=== PATIENT | male | born 1965 | race Caucasian/White ===

== ENCOUNTER 2018-12-01 21:04 | Emergency (ER) | payer BC, OTHER ==
[2018-12-01 21:15] VITALS: BP 123/75
[2018-12-01] MEDS ORDERED: Tetracaine 0.5% OPTH.SOL 4 ML* 1 DROP BTL RIGHT EYE ONE (21:24)
[2018-12-01] MEDS ORDERED: Fluorescein Sodium TOPICAL* 1 MG TEST STRIP OPHTHALMIC ONE (21:24)
--- NOTE | 2018-12-01 21:36 | ED ---
Throat Pain/Nasal Congestion - HPI Summary HPI Summary: Mr. Franco was using a Dremel about 1800 and felt a piece of metal go into his right eye. It has continued to bother him since. His vision is unaffected aside from watering a lot. - History of Current Complaint Chief Complaint: UCEye Hx Obtained From: Patient Onset/Duration: Sudden Onset Severity: Moderate Associated Signs And Symptoms: Positive: FB Sensation - Allergies/Home Medications Allergies/Adverse Reactions: Allergies Allergy/AdvReac Type Severity Reaction Status Date / Time No Known Allergies Allergy Verified 12/01/18 21:15 Home Medications: Home Medications NK [No Home Medications Reported] 12/01/18 [History Confirmed 12/01/18] PMH/Surg Hx/FS Hx/Imm Hx - Surgical History Surgery Procedure, Year, and Place: RIGHT SHOULDER ARTHROSCOPIC, RIGHT CARPAL TUNNEL RELEASE Infectious Disease History: No Infectious Disease History: Denies: Traveled Outside the [place] in Last 30 Days - Social History Alcohol Use: Occasionally Substance Use Type: Reports: Marijuana Smoking Status (MU): Current Every Day Smoker Type: Cigarettes Amount Used/How Often: 1 1/2 PPD Review of Systems Constitutional: Negative Positive: Drainage - watering. Negative: Photophobia, Blurred Vision, Diplopia , Erythema Psychological: Normal All Other Systems Reviewed And Are Negative: No Physical Exam - Summary Physical Exam Summary: He is non-toxic in appearance and vitals are stable. Triage Information Reviewed: Yes Vital Signs On Initial Exam: Initial Vitals Temp Pulse Resp BP Pulse Ox 96.7 F 94 16 123/75 95 12/01/18 21:10 12/01/18 21:10 12/01/18 21:10 12/01/18 21:10 12/01/18 21:10 Vital Signs Reviewed: Yes Appearance: Positive: Pain Distress - Mild Skin: Positive: Warm Eyes: Positive: Other: - There is a small metallic F.B adherent to the cornea about 9:00. Diagnostics - Vital Signs Vital Signs Temp Pulse Resp BP Pulse Ox 12/01/18 21:10 96.7 F 94 16 123/75 95 - Laboratory Lab Statement: Any lab studies that have been ordered have been reviewed, and results considered in the medical decision making process. EENT Course/Dx - Course Course Of Treatment: Tetracaine and fluoriscein were instilled onto the eye and an 18 gauge needle was used to flick the F.B off. It fell into the inferior part of his conjuntivae and that area was thoroughly irrigated with sterile NS. I couldn't find the F.B subsequently so I gave him some NS and F/U with Dr. Edgar if needed. - Diagnoses Provider Diagnoses: Corneal FB (foreign body) Discharge - Sign-Out/Discharge Documenting (check all that apply): Patient Departure All imaging exams completed and their final reports reviewed: No Studies - Discharge Plan Condition: Stable Disposition: HOME Patient Education Materials: Eye Foreign Body (ED) Referrals: Merlene COLEMAN,Francis Rodriguez [Primary Care Provider] - Dontrell Edgar MD [Medical Doctor] - - Billing Disposition and Condition Condition: STABLE Disposition: Home
== END 2018-12-01 21:45 | disposition home or self-care (01) ==
LOC: UCEAST 21:04
DX: T15.01XA Foreign body in cornea, right eye, initial encounter (principal); F17.210 Nicotine dependence, cigarettes, uncomplicated
CPT/HCPCS: 65220; 99202; A9270-GY; G0463

== ENCOUNTER 2018-12-02 18:20 | Emergency (ER) | payer BC ==
[2018-12-02] MEDS ORDERED: Tetracaine 0.5% OPTH.SOL 4 ML* 1 DROP BTL RIGHT EYE ONE (20:01)
[2018-12-02] MEDS ORDERED: Fluorescein Sodium TOPICAL* 1 MG TEST STRIP OPHTHALMIC ONE (20:01)
[2018-12-02] MEDS ORDERED: Tobramycin 0.3% OPHTH.SOL* 5 ML BOT (regular eye drops) RIGHT EYE ONE (20:33)
[2018-12-02] MEDS ORDERED: Eye Irrigation Solution 30 ML BOTTLE RIGHT EYE ONE (20:33)
--- NOTE | 2018-12-02 20:39 | UC ---
Eye Complaint HPI - HPI Summary HPI Summary: 53-year-old male comes to clinic today with a chief complaint of right eye pain and feeling of foreign body. Yesterday he was working and got up piece of metal in his right eye. It was a low velocity foreign body. He was seen here in urgent care and a foreign body was seen and the foreign body was dislodged from the surface of the eye however the foreign body was not found afterwards and this possibility the foreign body stayed in the eye. Last night the patient had tetracaine in the eye and had no pain however when he woke up this morning he had irritation primarily in the lateral upper quadrant. We has become more irritated his to days,. No complaint of vision change. - History of Current Complaint Chief Complaint: UCEye Stated Complaint: FOREIGN BODY IN EYE Time Seen by Provider: 12/02/18 19:48 Pain Intensity: 0 - Allergies/Home Medications Allergies/Adverse Reactions: Allergies Allergy/AdvReac Type Severity Reaction Status Date / Time No Known Allergies Allergy Verified 12/02/18 18:36 PMH/Surg Hx/FS Hx/Imm Hx Previously Healthy: Yes - Surgical History Surgical History: Yes Surgery Procedure, Year, and Place: RIGHT SHOULDER ARTHROSCOPIC, RIGHT CARPAL TUNNEL RELEASE - Family History Known Family History: Positive: Non-Contributory - Social History Alcohol Use: Occasionally Substance Use Type: Marijuana Smoking Status (MU): Current Every Day Smoker Type: Cigarettes Amount Used/How Often: 1 1/2 PPD Review of Systems All Other Systems Reviewed And Are Negative: Yes Constitutional: Positive: Negative Skin: Positive: Negative Eyes: Positive: Eye Redness, Other - SEE HPI ENT: Positive: Negative Respiratory: Positive: Negative Cardiovascular: Positive: Negative Gastrointestinal: Positive: Negative Motor: Positive: Negative Neurovascular: Positive: Negative Musculoskeletal: Positive: Negative Neurological: Positive: Negative Psychological: Positive: Negative Is Patient Immunocompromised?: No Physical Exam Triage Information Reviewed: Yes Appearance: Well-Appearing, No Pain Distress, Well-Nourished Vital Signs: Initial Vital Signs Temp 97.2 F 12/02/18 18:33 Pulse 87 12/02/18 18:33 Resp 20 12/02/18 18:33 BP 142/73 12/02/18 18:33 Pulse Ox 97 12/02/18 18:33 Vital Signs Reviewed: Yes Eyes: Positive: Conjunctiva Inflamed, Discharge - CLEAR DRAINAGE RT EYE, Other: - On examination of the eye with fluorescein stain on examination of the right I , there does appear to be fluorescein uptake in the right upper eyelid which I swept with a Q-tip. That same area was gone afterwards. Then the patient reported feeling a foreign body one the medial aspect of the eye. PERRLA EOMI globe intact. Iris and pupil are symmetric. ENT: Negative: Nasal congestion, Nasal drainage Neck exam: Normal Neck: Positive: Supple Respiratory: Positive: No respiratory distress Musculoskeletal Exam: Normal Musculoskeletal: Positive: Strength Intact, ROM Intact Neurological Exam: Normal Neurological: Positive: Alert, Muscle Tone Normal Psychological Exam: Normal Psychological: Positive: Age Appropriate Behavior Skin Exam: Normal Eye Complaint Course/Dx - Course Course Of Treatment: On this examination it appears I was able to remove the free-floating foreign body from underneath the right eyelid. However I did let the patient know I would like him to follow up with ophthalmology tomorrow for more complete examination. - Differential Dx/Diagnosis Provider Diagnosis: Foreign body of right eye Discharge - Sign-Out/Discharge Documenting (check all that apply): Patient Departure All imaging exams completed and their final reports reviewed: No Studies - Discharge Plan Condition: Stable Disposition: HOME Patient Education Materials: Eye Foreign Body (ED) Referrals: Merlene COLEMAN,Francis Rodriguez [Primary Care Provider] - Jh Chapman MD [Medical Doctor] - Dontrell Edgar MD [Medical Doctor] - Additional Instructions: FOLLOW UP WITH OPHTHALMOLOGY. GET RECHECKED FOR ANY WORSENING OF YOUR CONDITION OR QUESTIONS OR CONCERNS. - Billing Disposition and Condition Condition: STABLE Disposition: Home
[2018-12-02 21:01] VITALS: BP 133/78
== END 2018-12-02 20:50 | disposition home or self-care (01) ==
LOC: UCEAST 18:20
DX: T15.91XA Foreign body on external eye, part unspecified, right eye, initial encounter (principal); X58.XXXA Exposure to other specified factors, initial encounter; Y92.9 Unspecified place or not applicable; F17.210 Nicotine dependence, cigarettes, uncomplicated
CPT/HCPCS: 99212; A9270-GY; G0463